=== PATIENT | female | born 1950 | race Caucasian/White ===

== ENCOUNTER 2016-05-17 15:35 | Emergency (ER) | payer OTHER ==
[~2016-05-17] VITALS: Ht 157.5 cm; Wt 77.1 kg
--- NOTE | ~2016-05-17 | EKG ---
[place] [address] [facility] [place] [address] ELECTROCARDIOGRAM REPORT Name: CARYN WADSWORTH [id number] Admission: 05/17/16 Attend Phys: Discharge: 05/17/16 Date of : 54 Report #: [id number] THIS REPORT FOR: //name// [facility] ED Test Date: 2016-05-17 Test Time: 15:40:17 Pat Name: CARYN WADSWORTH Department: Room: Gender: F Safety Fire Boss: georgina khoury : 1950 Requested By: Tacos Messina Order Number: [id number] MD: Deon Kendrick Measurements Intervals [place] Rate: 68 P: 52 CA: 170 QRS: 18 QRSD: 109 T: 59 QT: 453 QTc: 482 Interpretive Statements Sinus rhythm Probable left ventricular hypertrophy Poor R wave progression No previous ECG available for comparison Electronically Signed On 05-18-2016 13:34:13 [employer] by Deon Kendrick [email or web address] <ELECTRONICALLY SIGNED> By: Deon Kendrick MD, [facility] 05/18/16 1334 1540 1540 Deon Kendrick MD, FACC /EPI
[~2016-05-17 15:35] MED LIST: ABILIFY10 MG; ACETAMINOPHEN-1 EAC1 PO; BUSPAR 5 MG TABL5 M1 PO; BUSPIRONE; BUSPIRONE HCL10 MG PO; CLONAZEPAM; CLONAZEPAM 1 MG1 M1 PO; COMBIVENT INH; FLEXERIL PO; FLOMAX0.4 MG PO; HCTZ; HYDROCHLOROTH12.5 MG PO; IBUPROFEN 200200 M1 PO; INDOMETHACIN 2525 MG PO; K-DUR 20 MEQ T20 MEQ PO; LEVAQUIN 500 M500 MG PO; LEXAPRO 10 MG T10 MG PO; LOMOTIL TABLET1 EACH PO; LOPRESSOR; LOPRESSOR 50 MG50 M1 PO; LOSARTAN POTAS100 MG PO; MAALOX MAXIMUM355 ML PO; METOPROLOL 50 M50 M1 PO; NASAL MOISTURIZ30 ML NS; NASAL SPRAY30 ML NS; NITROFURANTOIN100 MG PO; NORCO 5-325 TA1 EACH PO; NORFLEX100 MG PO; OPANA ER5 M1 PO; OXECTA5 MG PO; PERCOCET; PERCOCET 5-3251 EACH PO; PROZAC40 MG PO; PYRIDIUM100 MG PO; ROXICODONE15 M1 PO; SIMVASTATIN40 MG PO; TOPROL XL50 MG; TRAMADOL 50 MG50 MG PO; TRIAMTERENE-HC1 EAC2 PO; TUMS PO; ULTRAM 50MG TAB50 MG; ULTRAM 50MG TAB50 MG PO; VALIUM5 MG PO; VICODIN 5-5001 EACH PO; VICODIN HP 10-1 EAC1 PO; XANAX 0.5 MG0.5 M1 PO; ZOCOR; ZOFRAN4 MG PO; ZOLOFT; ZOLOFT 50 MG TA50 M1 PO
[2016-05-17] MEDS ORDERED: BUSPIRONE HCL10 MG PO (15:53)
[2016-05-17 16:16] LABS: ABSOLUTE NEUTROPHILS 5.5 thou/uL (1.4-8.2); BASOPHILS 1.7 % (0.0-2.0); EOSINOPHILS 0.1 % (0.0-3.0); HEMATOCRIT 39.2 % (37.0-47.0); HEMOGLOBIN 13.3 gm/dL (12.0-15.0); LYMPHOCYTES 32.5 % (24.0-44.0); MCH 28.1 pg (26.0-34.0); MCHC 33.9 % (28.0-37.0); MCV 82.8 fL (80.0-100.0); MONOCYTES 5.4 % (1.0-8.0); PLATELET COUNT 382 thou/uL (150-400); POLYS 60.3 % (36.0-66.0); RBC 4.73 mil/uL (4.20-5.00); RDW 13.9 % (10.5-14.5); WBC 9.1 thou/uL (4.0-11.0)
[2016-05-17 16:19] LABS: ANION GAP 15 mmol/L (7-16); BUN 14 mg/dL (7-18); CALCIUM 8.9 mg/dL (8.5-10.1); CHLORIDE 105 mmol/L (98-107); CO2 25 mmol/L (21-32); GLUCOSE 126 mg/dL (70-99); MANUAL DIFF NO; SODIUM 145 mmol/L (136-145)
[2016-05-17 16:26] LABS: POTASSIUM 2.8 mmol/L (3.5-5.1)
[2016-05-17 16:28] LABS: ALBUMIN 3.6 g/dL (3.4-5.0); ALKALINE PHOSPHATASE 72 U/L (46-116); MAGNESIUM 1.7 mg/dL (1.8-2.4); SGOT 18 U/L (15-37); SGPT 18 U/L (30-65); TOTAL BILIRUBIN 0.2 mg/dL (<0.1-1.0); TOTAL PROTEIN 7.4 g/dL (6.4-8.2)
[2016-05-17 17:07] LABS: TROPONIN-I < 0.04 ng/mL (<0.04-0.07)
[2016-05-17] MEDS ORDERED: TRAMADOL 50 MG50 MG PO (17:16)
[2016-05-17] MEDS ORDERED: TESSALON PERLE100 MG PO (17:16)
[2016-05-17] MEDS ORDERED: VENTOLIN HFA 1818 GM INH (17:16)
[2016-06-25] MEDS ORDERED: LOPERAMIDE 2 MG2 M1 PO (11:23)
[2016-06-25] MEDS ORDERED: ZOFRAN ODT4 MG PO (11:23)
[2016-06-25] MEDS ORDERED: PHENERGAN 25 MG25 M1 PO (11:23)
[2016-06-25] MEDS ORDERED: BENTYL 20 MG TA20 M1 PO (11:23)
[2016-06-25] MEDS ORDERED: TRAMADOL 50 MG50 MG PO (11:51)
== END 2016-05-17 17:35 | disposition home or self-care (01) ==
LOC: ER 15:35
PROVIDERS: Emergency Medicine
DX: J20.8 Acute bronchitis due to other specified organisms (principal); I10 Essential (primary) hypertension; F32.9 Major depressive disorder, single episode, unspecified; F41.9 Anxiety disorder, unspecified; K21.9 Gastro-esophageal reflux disease without esophagitis; M54.30 Sciatica, unspecified side; Z88.6 Allergy status to analgesic agent; Z88.3 Allergy status to other anti-infective agents; F17.210 Nicotine dependence, cigarettes, uncomplicated; F10.99 Alcohol use, unspecified with unspecified alcohol-induced disorder

== ENCOUNTER 2016-10-30 15:16 | Emergency (ER) | payer OTHER ==
[~2016-10-30] VITALS: Ht 157.5 cm; Wt 77.1 kg
[~2016-10-30 15:16] MED LIST changes: +BENTYL 20 MG TA20 M1 PO; +LOPERAMIDE 2 MG2 M1 PO; +PHENERGAN 25 MG25 M1 PO; +TESSALON PERLE100 MG PO; +VENTOLIN HFA 1818 GM INH; +ZOFRAN ODT4 MG PO
[2016-10-30] MEDS ORDERED: VENTOLIN HFA 1818 GM INH (15:32)
[2016-10-30] MEDS ORDERED: NORCO 5-325 TA1 EACH PO (16:12)
== END 2016-10-30 16:32 | disposition home or self-care (01) ==
LOC: ER 15:16
DX: S90.31XA Contusion of right foot, initial encounter (principal); I10 Essential (primary) hypertension; G43.909 Migraine, unspecified, not intractable, without status migrainosus; F32.9 Major depressive disorder, single episode, unspecified; F41.9 Anxiety disorder, unspecified; K21.9 Gastro-esophageal reflux disease without esophagitis; F17.210 Nicotine dependence, cigarettes, uncomplicated; F10.99 Alcohol use, unspecified with unspecified alcohol-induced disorder; Z87.442 Personal history of urinary calculi; Z88.6 Allergy status to analgesic agent; Z88.8 Allergy status to other drugs, medicaments and biological substances; W20.8XXA Other cause of strike by thrown, projected or falling object, initial encounter; Y93.89 Activity, other specified; Y92.89 Other specified places as the place of occurrence of the external cause; Y99.8 Other external cause status

== ENCOUNTER 2016-11-11 20:45 | Emergency (ER) | payer OTHER ==
[~2016-11-11] VITALS: Ht 154.9 cm; Wt 77.1 kg
[2016-11-11 21:55] LABS: ABSOLUTE NEUTROPHILS 3.7 thou/uL (1.4-8.2); BASOPHILS 0.8 % (0.0-2.0); EOSINOPHILS 2.5 % (0.0-3.0); HEMOGLOBIN 12.9 gm/dL (12.0-15.0); MCH 29.3 pg (26.0-34.0); MCHC 33.9 g/dL (28.0-37.0); MCV 86.5 fL (80.0-100.0); MONOCYTES 7.1 % (1.0-8.0); PLATELET COUNT 302 thou/uL (150-400); POLYS 48.6 % (36.0-66.0); RBC 4.39 mil/uL (4.20-5.00); RDW 13.6 % (10.5-14.5); WBC 7.6 thou/uL (4.0-11.0)
[2016-11-11 22:04] LABS: ALBUMIN 3.8 g/dL (3.4-5.0); ALKALINE PHOSPHATASE 71 U/L (46-116); ANION GAP 8 mmol/L (7-16); BUN 17 mg/dL (7-18); CALCIUM 9.2 mg/dL (8.5-10.1); CHLORIDE 105 mmol/L (98-107); CO2 28 mmol/L (21-32); CREATININE 1.3 mg/dL (0.6-1.0); GLUCOSE 133 mg/dL (74-106); POTASSIUM 3.7 mmol/L (3.5-5.1); SGOT 43 U/L (15-37); SGPT 64 U/L (30-65); SODIUM 141 mmol/L (136-145); TOTAL BILIRUBIN 0.3 mg/dL (<0.1-1.0); TOTAL PROTEIN 7.7 g/dL (6.4-8.2)
[2016-11-11 22:06] LABS: MANUAL DIFF NO
[2016-11-11] MEDS ORDERED: CLEOCIN HCL300 MG PO (22:27)
[2016-11-11] MEDS ORDERED: NORCO 5-325 TA1 EACH PO (22:27)
== END 2016-11-11 22:52 | disposition home or self-care (01) ==
LOC: ER 20:45
PROVIDERS: Emergency Medicine
DX: L03.115 Cellulitis of right lower limb (principal); G43.909 Migraine, unspecified, not intractable, without status migrainosus; I10 Essential (primary) hypertension; F32.9 Major depressive disorder, single episode, unspecified; F41.9 Anxiety disorder, unspecified; K21.9 Gastro-esophageal reflux disease without esophagitis; F17.210 Nicotine dependence, cigarettes, uncomplicated; F10.99 Alcohol use, unspecified with unspecified alcohol-induced disorder; Z87.442 Personal history of urinary calculi; Z88.6 Allergy status to analgesic agent; Z88.8 Allergy status to other drugs, medicaments and biological substances

== ENCOUNTER 2016-12-15 14:58 | Emergency (ER) | payer OTHER ==
[~2016-12-15] VITALS: Ht 162.6 cm; Wt 81.7 kg
[~2016-12-15 14:58] MED LIST changes: +CLEOCIN HCL300 MG PO
[2016-12-15 16:33] LABS: URINE BILIRUBIN NEGATIVE (Negative); URINE BLOOD TRACE (Negative); URINE COLOR YELLOW; URINE GLUCOSE-RANDOM* NEGATIVE (Negative); URINE KETONES NEGATIVE (Negative); URINE LEUKOCYTES-REFLEX TRACE (Negative); URINE PROTEIN (DIPSTICK) 1+ (Negative); URINE SPECIFIC GRAVITY >= 1.030 (1.003-1.035); URINE UROBILINOGEN 0.2 E.U./dl (0.2-1.0)
[2016-12-15 16:38] LABS: SQUAMOUS >10 Many /LPF (0-3)
[2016-12-15 16:39] LABS: ABSOLUTE NEUTROPHILS 3.5 thou/uL (1.4-8.2); BASOPHILS 1.5 % (0.0-2.0); EOSINOPHILS 1.8 % (0.0-3.0); HEMATOCRIT 38.6 % (37.0-47.0); HEMOGLOBIN 13.4 gm/dL (12.0-15.0); LYMPHOCYTES 40.6 % (24.0-44.0); MCH 29.3 pg (26.0-34.0); MCHC 34.7 g/dL (28.0-37.0); MCV 84.6 fL (80.0-100.0); MONOCYTES 7.1 % (1.0-8.0); PLATELET COUNT 305 thou/uL (150-400); RBC 4.56 mil/uL (4.20-5.00); RDW 13.6 % (10.5-14.5); WBC 7.1 thou/uL (4.0-11.0)
[2016-12-15 16:39] LABS: CASTS None Seen /LPF (None Seen); CRYSTALS None Seen /LPF (None Seen); URINE RBC 0-2 Rare /HPF (0-2); URINE WBC-REFLEX 0-5 Rare /HPF (0-5)
[2016-12-15 16:42] LABS: MANUAL DIFF NO
[2016-12-15 16:46] LABS: CALCIUM 9.7 mg/dL (8.5-10.1); POTASSIUM 3.8 mmol/L (3.5-5.1)
== END 2016-12-15 17:29 | disposition home or self-care (01) ==
LOC: ER 14:58
PROVIDERS: Physician Assistant
DX: M79.673 Pain in unspecified foot (principal); R21 Rash and other nonspecific skin eruption; G43.909 Migraine, unspecified, not intractable, without status migrainosus; I10 Essential (primary) hypertension; F32.9 Major depressive disorder, single episode, unspecified; F41.9 Anxiety disorder, unspecified; K21.9 Gastro-esophageal reflux disease without esophagitis; F17.210 Nicotine dependence, cigarettes, uncomplicated; F10.99 Alcohol use, unspecified with unspecified alcohol-induced disorder; Z87.442 Personal history of urinary calculi; Z88.8 Allergy status to other drugs, medicaments and biological substances; Z88.6 Allergy status to analgesic agent

== ENCOUNTER 2018-06-21 16:47 | Emergency (ER) | payer OTHER ==
[~2018-06-21] VITALS: Ht 154.9 cm; Wt 81.7 kg
[2018-06-21 18:01] LABS: EOSINOPHILS 0.9 % (0.0-3.0); HEMATOCRIT 41.9 % (37.0-47.0); HEMOGLOBIN 14.5 gm/dL (12.0-15.0); LYMPHOCYTES 31.2 % (24.0-44.0); MCH 30.2 pg (26.0-34.0); MCHC 34.5 g/dL (28.0-37.0); MCV 87.4 fL (80.0-100.0); MONOCYTES 6.6 % (1.0-8.0); PLATELET COUNT 266 thou/uL (150-400); POLYS 60.3 % (36.0-66.0); RBC 4.79 mil/uL (4.20-5.00); RDW 13.7 % (10.5-14.5); WBC 6.6 thou/uL (4.0-11.0)
[2018-06-21 18:07] LABS: ANION GAP 14 mmol/L (7-16); BUN 17 mg/dL (7-18); CALCIUM 9.6 mg/dL (8.5-10.1); CHLORIDE 97 mmol/L (98-107); CO2 26 mmol/L (21-32); GLUCOSE 184 mg/dL (74-106); SODIUM 137 mmol/L (136-145)
[2018-06-21 18:15] LABS: ALBUMIN 3.9 g/dL (3.4-5.0); DIRECT BILIRUBIN < 0.1 mg/dL (<0.1-0.3); SGOT 225 U/L (15-37); SGPT 184 U/L (30-65); TOTAL BILIRUBIN 0.3 mg/dL (<0.1-1.0); TOTAL PROTEIN 8.4 g/dL (6.4-8.2)
[2018-06-21 18:16] LABS: URINE BLOOD 2+ (Negative); URINE CLARITY CLEAR; URINE COLOR YELLOW; URINE GLUCOSE-RANDOM* NEGATIVE (Negative); URINE KETONES TRACE (Negative); URINE LEUKOCYTES-REFLEX NEGATIVE (Negative); URINE NITRITE-REFLEX NEGATIVE (Negative); URINE PROTEIN (DIPSTICK) 2+ (Negative); URINE SPECIFIC GRAVITY >= 1.030 (1.005-1.035)
[2018-06-21 18:21] LABS: ICTOTEST (BILI CONFIRMATORY) Negative (Negative); URINE BILIRUBIN NEGATIVE (Negative)
[2018-06-21 18:29] LABS: CASTS None Seen /LPF (None Seen); CRYSTALS None Seen /LPF (None Seen); SQUAMOUS >10 Many /LPF (0-3); URINE RBC >20 Many /HPF (0-2); URINE WBC-REFLEX 0-5 Rare /HPF (0-5)
[2018-06-21 18:30] LABS: BACTERIA-REFLEX None Seen /HPF (None Seen)
[2018-06-21] MEDS ORDERED: TOPROL XL50 MG PO (20:29)
[2018-06-21] MEDS ORDERED: AMOXICILLIN500 M1 PO (20:30)
[2018-06-21 21:24] VITALS: BP 124/86
== END 2018-06-21 21:25 | disposition home or self-care (01) ==
LOC: ER 16:47
PROVIDERS: Emergency Medicine
DX: N20.0 Calculus of kidney (principal); S39.012A Strain of muscle, fascia and tendon of lower back, initial encounter; I10 Essential (primary) hypertension; G43.909 Migraine, unspecified, not intractable, without status migrainosus; M54.30 Sciatica, unspecified side; F32.9 Major depressive disorder, single episode, unspecified; F41.9 Anxiety disorder, unspecified; K21.9 Gastro-esophageal reflux disease without esophagitis; F17.210 Nicotine dependence, cigarettes, uncomplicated; Z88.8 Allergy status to other drugs, medicaments and biological substances; X58.XXXA Exposure to other specified factors, initial encounter; Y93.89 Activity, other specified; Y92.89 Other specified places as the place of occurrence of the external cause; Y99.8 Other external cause status

== ENCOUNTER 2018-11-19 14:28 | Emergency (ER) | payer OTHER ==
[~2018-11-19] VITALS: Ht 154.9 cm; Wt 83.9 kg
[~2018-11-19 14:28] MED LIST changes: +AMOXICILLIN500 M1 PO; +TOPROL XL50 MG PO
[2018-11-19 17:12] LABS: URINE BILIRUBIN NEGATIVE (Negative); URINE BLOOD NEGATIVE (Negative); URINE CLARITY CLEAR; URINE COLOR YELLOW; URINE GLUCOSE-RANDOM* NEGATIVE (Negative); URINE KETONES NEGATIVE (Negative); URINE LEUKOCYTES-REFLEX NEGATIVE (Negative); URINE NITRITE-REFLEX NEGATIVE (Negative); URINE PROTEIN (DIPSTICK) TRACE (Negative); URINE SPECIFIC GRAVITY 1.015 (1.005-1.035); URINE UROBILINOGEN 0.2 E.U./dl (0.2-1.0)
[2018-11-19] MEDS ORDERED: CAPSAICIN HOT1 EACH TOP (21:26)
[2018-11-19] MEDS ORDERED: ROBAXIN500 MG PO (21:26)
[2018-11-19 21:48] VITALS: BP 190/159
== END 2018-11-19 22:09 | disposition home or self-care (01) ==
LOC: ER 14:28
PROVIDERS: Emergency Medicine
DX: M51.06 Intervertebral disc disorders with myelopathy, lumbar region (principal); K59.00 Constipation, unspecified; I10 Essential (primary) hypertension; G43.909 Migraine, unspecified, not intractable, without status migrainosus; F32.9 Major depressive disorder, single episode, unspecified; F41.9 Anxiety disorder, unspecified; K21.9 Gastro-esophageal reflux disease without esophagitis; M48.061 Spinal stenosis, lumbar region without neurogenic claudication; M19.90 Unspecified osteoarthritis, unspecified site; F17.210 Nicotine dependence, cigarettes, uncomplicated; Z87.442 Personal history of urinary calculi; Z88.6 Allergy status to analgesic agent

== ENCOUNTER 2019-03-29 17:03 | Inpatient (IN) | payer OTHER ==
[~2019-03-29] VITALS: Ht 154.9 cm; Wt 78.5 kg
[2019-03-29 17:03] VITALS: BP 179/123
[~2019-03-29 17:03] MED LIST changes: +CAPSAICIN HOT1 EACH TOP; +ROBAXIN500 MG PO
[2019-03-29 17:32] LABS: URINE BILIRUBIN NEGATIVE (Negative); URINE BLOOD NEGATIVE (Negative); URINE CLARITY CLEAR; URINE COLOR YELLOW; URINE GLUCOSE-RANDOM* NEGATIVE (Negative); URINE KETONES NEGATIVE (Negative); URINE NITRITE-REFLEX NEGATIVE (Negative); URINE PROTEIN (DIPSTICK) 1+ (Negative); URINE SPECIFIC GRAVITY 1.025 (1.005-1.035); URINE UROBILINOGEN 0.2 E.U./dl (0.2-1.0)
[2019-03-29 17:33] LABS: URINE LEUKOCYTES-REFLEX 1+ (Negative)
[2019-03-29 17:38] LABS: BACTERIA-REFLEX None Seen /HPF (None Seen); CRYSTALS None Seen /LPF (None Seen); SQUAMOUS 4-10 Moderate /LPF (0-3); URINE RBC None Seen /HPF (0-2); URINE WBC-REFLEX 6-15 Few /HPF (0-5)
[2019-03-29 18:25] LABS: ABSOLUTE NEUTROPHILS 9.7 thou/uL (1.4-8.2); BASOPHILS 0.3 % (0.0-2.0); EOSINOPHILS 0.1 % (0.0-3.0); HEMATOCRIT 41.8 % (37.0-47.0); HEMOGLOBIN 13.5 gm/dL (12.0-15.0); LYMPHOCYTES 29.1 % (24.0-44.0); MCH 27.1 pg (26.0-34.0); MCHC 32.3 g/dL (28.0-37.0); MCV 83.8 fL (80.0-100.0); PLATELET COUNT 399 thou/uL (150-400); POLYS 65.5 % (36.0-66.0); RBC 4.99 mil/uL (4.20-5.00); RDW 15.2 % (10.5-14.5); WBC 14.9 thou/uL (4.0-11.0)
[2019-03-29 18:32] LABS: CALCIUM 9.4 mg/dL (8.5-10.1); POTASSIUM 3.7 mmol/L (3.5-5.1)
[2019-03-29 18:37] LABS: TOTAL BILIRUBIN 0.3 mg/dL (<0.1-1.0); TOTAL PROTEIN 7.8 g/dL (6.4-8.2)
[2019-03-29 20:02] VITALS: BP 144/95
[2019-03-29] MEDS ORDERED: TOPROL XL50 MG (20:03)
--- NOTE | 2019-03-29 20:30 | NUR ---
Pt. arrived to the unit from the emergency room accompanied by staff. She is alert and oriented, but forgetful. Pt. is also a poor historian. She is up ad chance and is anxious for a shower and something to eat. Grinding Operator is going to give pt. a bath later this pm.
[2019-03-29 20:33] VITALS: BP 160/107
[2019-03-29] MEDS ORDERED: IBUPROFEN IB200 MG PO (20:49)
[2019-03-29] MEDS ORDERED: TRAMADOL 50 MG50 MG PO (20:50)
--- NOTE | 2019-03-30 01:00 | NUR ---
Pt. resting soundly and was awaken by Sharmin LAIRD. Pt. lethargic and Sharmin LAIRD ordered ABG's. Pt. did start to arouse more and was answering my questions appropriately. Bp elevated and po bp medication given. Bed alarm in place for safety.
[2019-03-30 01:55] LABS: BE(vivo) 1.8 mmol/L (-2 to +3); HCO3 26.9 mmol/L (22.0-26.0); PCO2 44.1 mmHg (35.0-45.0); PO2 76.6 mmHg (80.0-100.0); pH 7.403 (7.360-7.450); sO2 95.3 % (92.0-98.0)
[2019-03-30 03:49] VITALS: BP 180/111
--- NOTE | 2019-03-30 03:50 | NUR ---
Pt. crying out in pain and is very anxious. At this time bp was taken and it was elevated. Pain medication given (see emar) for c/o pain to her left hip. Pt. was also toileted.
[2019-03-30] MEDS ORDERED: LOSARTAN POTAS100 MG PO (04:31)
[2019-03-30] MEDS ORDERED: LIPITOR80 MG PO (04:32)
[2019-03-30] MEDS ORDERED: NORVASC 2.5 MG2.5 M1 PO (04:32)
[2019-03-30 05:15] VITALS: BP 163/73
--- NOTE | 2019-03-30 05:21 | NUR ---
Pt. resting quietly with no c/o pain. Bp rechecked and it had come down (see vs).
[2019-03-30 08:00] VITALS: BP 187/108
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
--- NOTE | 2019-03-30 17:51 | NUR ---
RESUMED CARE AT 1745. PT TRANSFERRED FROM 4W TO SENIOR SUITES ROOM 411. PT IS NOTED TO BE HYPERTENSIVE UPON ARRIVAL AND REQUESTING TO GO OUT AND SMOKE. PT STATES, "MY BLOOD PRESSURE IS HIGH BECAUSE YA'LL WON'T LET ME HAVE A CIGARETTE." NURSE EDUACATED PT ON SMOKING POLICY AND THAT [facility] IS A TOBACCO FREE BRANDON. PT REQUESTS TO GO OUT AND SMOKE STILL. PT IS CURRENTLY SITTING UP IN BED. CALL LIGHT IS WITHIN REACH. NURSE WILL CONTINUE TO MONITOR.
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
[2019-03-30 18:43] VITALS: BP 175/89
[2019-03-30 20:40] VITALS: BP 183/95
[2019-03-31 06:08] VITALS: BP 161/101
--- NOTE | 2019-03-31 06:10 | NUR ---
PATIENT ALERT AND ORIENTED X4, CONFUSED AND FORGETFUL. UP TO BATHROOM BY SELF, NOT A FALL RISK. C/O PAIN, IV MED GIVEN WHICH GIVES HER A HEADACHE, PO MED GIVEN FOR THAT. IV IN RAC PATENT. BP UP LAST NIGHT, SCHEDULLED MED GIVEN. BP TAKEN THIS AM AND WAS 191/101. THIS SEEMS TO BE HER NORM.SLEPT OFF AND ON DURING NIGHT.
[2019-03-31 08:05] VITALS: BP 169/89
--- NOTE | 2019-03-31 12:56 | NUR ---
SW reviewed chart and spoke with nursing and attending physician. Pt was transferred to [facility] from 4 and may be ready for discharge later today. Awaiting consult by neurosurgery. Psych consulted completed yesterday due to pt's anxiety/depression. SONG met with pt at bedside. Introduced role of SW. Pt is alert/orientated x 4. Pt reports she lives at home with her spouse. They are guardians for their two grand children ages 6 and 12. Pt states that the children have Medicaid and they are being taken care of. Pt states she did have [place]icaid at one time, but it has lapsed. Pt did have food stamps at one time. SW [facility] to determine if Medicaid can get reinstated. Pt is agreeable. Pt will need transportation home via cab: [address] [id number]. Meds will need to be vouched for in [facility]. Pt states they do not have a car and they do not always have reliable transportation. Pt has a STUDENT LIFE DEAN that she sees regularly. [facility] to follow up with pt regarding Medicaid application. Awaiting final discharge orders. SONG is following to assist as needed with discharge planning.
[2019-03-31] MEDS ORDERED: NORCO 5-325 TA1 EAC1 PO (13:29)
[2019-03-31] MEDS ORDERED: LOSARTAN POTAS100 MG PO (15:15)
[2019-03-31] MEDS ORDERED: LIPITOR80 MG PO (15:15)
[2019-03-31] MEDS ORDERED: NORVASC 2.5 MG2.5 M1 PO (15:15)
[2019-03-31] MEDS ORDERED: TOPROL XL50 MG PO (15:15)
[2019-03-31 15:27] VITALS: BP 169/89
--- NOTE | 2019-03-31 17:04 | NUR ---
ASSUMED CARE OF PATIENT AT 0715, PATIENT ALERT AND ORIENTED X 4. PATIENT UP AD ALBER IN HER ROOM. PATIENT C/O PAIN WITH LEFT UPPER BACK. PATIENT RECEIVED FENTANYL 50 MCG IV X 1, WITH PARTIAL RELIEF. DR CHAHAL HERE TO SEE THE PATIENT, POSSIBLE DISCHARGE TO HOME AFTER DR LORD SEES THE PATIENT IN REGARD TO COMPRESSION FX IN BACK, NAILHEAD SETTER SAW THE PATIENT AND NO SURGERY TO BE DONE, MRI SHOWED OLD COMPRESSION FRACTURE. DR CHAHAL PUT DISCHARGE ORDERS IN, PATIENT NEEDS CAB VOUCHER AND NEEDS HELP OBTAIN PAIN MEDS, SCRIPT FOR NORCO WENT TO THE PATIENT'S PHARMACY, BUT PTIENT C/O NOT BEING ABLE TO GET SCRIPT FROM THE PHARMACY. YURI/KENISHA WILL GET SCRIPT TO SEND TO OUTPATIENT PHARMACY. REPORT GIVEN TO LUANA/RN TO TAKE OVER CARE AT 1300.
--- NOTE | 2019-03-31 18:09 | NUR ---
PT RECEIVED DISCHARGE INSTRUCTIONS, VERBALIZED UNDERSTANDING OF HER MEDICATION. PT WAS TRANSPORTED BY WHEELCHAIR TO OUTPATIENT PHARMACY AND THEN TO [facility] FOR A TAXI HOME. PT VSS, PAIN CONTROLLED WITH IV ANALGESIC. BELONGINGS PACKED AND SENT HOME WITH PT.
== END 2019-03-31 19:30 | disposition home or self-care (01) | DRG 871 ==
LOC: ER 17:03 → EROBS 19:49 → 4W 19:49 → 4N 03-30 08:00 → 4W 03-30 08:00 → 4N 03-30 17:47 → ENTRNSPT 03-31 17:38 → 4N 03-31 19:30
PROVIDERS: Emergency Medicine Emergency Medical Services; Nurse Practitioner Acute Care; ADMIT Hospitalist
DX: A41.9 Sepsis, unspecified organism (principal); G93.41 Metabolic encephalopathy; S22.089A Unspecified fracture of T11-T12 vertebra, initial encounter for closed fracture; N39.0 Urinary tract infection, site not specified; G43.909 Migraine, unspecified, not intractable, without status migrainosus; M54.5 Low back pain; I10 Essential (primary) hypertension; F32.9 Major depressive disorder, single episode, unspecified; F41.9 Anxiety disorder, unspecified; K21.9 Gastro-esophageal reflux disease without esophagitis; F17.210 Nicotine dependence, cigarettes, uncomplicated; M54.9 Dorsalgia, unspecified; Z71.6 Tobacco abuse counseling; M54.32 Sciatica, left side; X58.XXXA Exposure to other specified factors, initial encounter; Y93.89 Activity, other specified; Y92.89 Other specified places as the place of occurrence of the external cause; Z87.442 Personal history of urinary calculi; Z88.8 Allergy status to other drugs, medicaments and biological substances; Y99.8 Other external cause status
CPT/HCPCS: 10045; 10790

== ENCOUNTER 2019-04-27 14:55 | Emergency (ER) | payer OTHER ==
[~2019-04-27] VITALS: Ht 154.9 cm; Wt 78.5 kg
[~2019-04-27 14:55] MED LIST changes: +IBUPROFEN IB200 MG PO; +LIPITOR80 MG PO; +NORCO 5-325 TA1 EAC1 PO; +NORVASC 2.5 MG2.5 M1 PO
[2019-04-27] MEDS ORDERED: EXCEDRIN CAPLE1 EACH PO (14:59)
[2019-04-27] MEDS ORDERED: EXCEDRIN MIGRA1 EAC1 PO (14:59)
[2019-04-27] MEDS ORDERED: IBUPROFEN 200200 M1 PO (14:59)
[2019-04-27] MEDS ORDERED: TOPROL XL50 MG (15:00)
[2019-04-27] MEDS ORDERED: NORCO 5-325 TA1 EAC1 PO (16:16)
[2019-04-27] MEDS ORDERED: IBUPROFEN 600600 M1 PO (16:16)
[2019-04-27 17:04] VITALS: BP 156/92
== END 2019-04-27 17:06 | disposition home or self-care (01) ==
LOC: ER 14:55
DX: S46.012A Strain of muscle(s) and tendon(s) of the rotator cuff of left shoulder, initial encounter (principal); G43.909 Migraine, unspecified, not intractable, without status migrainosus; K21.9 Gastro-esophageal reflux disease without esophagitis; I10 Essential (primary) hypertension; F32.9 Major depressive disorder, single episode, unspecified; F17.210 Nicotine dependence, cigarettes, uncomplicated; Z87.442 Personal history of urinary calculi; Z88.6 Allergy status to analgesic agent; W18.39XA Other fall on same level, initial encounter; Y92.89 Other specified places as the place of occurrence of the external cause; Y93.89 Activity, other specified; Y99.8 Other external cause status

== ENCOUNTER 2019-06-01 19:23 | Emergency (ER) | payer OTHER ==
[~2019-06-01] VITALS: Ht 154.9 cm; Wt 79.4 kg
[~2019-06-01 19:23] MED LIST changes: +EXCEDRIN CAPLE1 EACH PO; +EXCEDRIN MIGRA1 EAC1 PO; +IBUPROFEN 600600 M1 PO
[2019-06-01] MEDS ORDERED: FUROSEMIDE 20 M20 MG PO (19:47)
[2019-06-01] MEDS ORDERED: GABAPENTIN 100100 MG PO (19:48)
[2019-06-01] MEDS ORDERED: TRAMADOL 50 MG50 MG PO (19:48)
[2019-06-01 20:00] LABS: ABSOLUTE NEUTROPHILS 3.8 thou/uL (1.4-8.2); BASOPHILS 1.5 % (0.0-2.0); EOSINOPHILS 1.9 % (0.0-3.0); HEMATOCRIT 36.6 % (37.0-47.0); HEMOGLOBIN 12.1 gm/dL (12.0-15.0); LYMPHOCYTES 42.5 % (24.0-44.0); MCH 27.7 pg (26.0-34.0); MONOCYTES 5.3 % (1.0-8.0); PLATELET COUNT 334 thou/uL (150-400); POLYS 48.8 % (36.0-66.0); RBC 4.36 mil/uL (4.20-5.00); RDW 15.4 % (10.5-14.5); WBC 7.9 thou/uL (4.0-11.0)
[2019-06-01 20:09] LABS: CALCIUM 9.4 mg/dL (8.5-10.1); CREATININE 0.8 mg/dL (0.6-1.0); POTASSIUM 3.3 mmol/L (3.5-5.1)
[2019-06-01 20:14] LABS: INR 1.1; PROTIME 11.1 Seconds (9.3-11.4)
[2019-06-01 20:15] LABS: TOTAL BILIRUBIN 0.3 mg/dL (<0.1-1.0); TOTAL PROTEIN 7.7 g/dL (6.4-8.2)
[2019-06-01] MEDS ORDERED: NORCO 10-325 T1 EACH PO (22:02)
[2019-06-01 22:20] VITALS: BP 163/123
== END 2019-06-01 22:20 | disposition home or self-care (01) ==
LOC: ER 19:23
PROVIDERS: Physician Assistant
DX: I87.2 Venous insufficiency (chronic) (peripheral) (principal); M79.89 Other specified soft tissue disorders; K21.9 Gastro-esophageal reflux disease without esophagitis; G43.909 Migraine, unspecified, not intractable, without status migrainosus; F32.9 Major depressive disorder, single episode, unspecified; F17.210 Nicotine dependence, cigarettes, uncomplicated; F41.9 Anxiety disorder, unspecified; Z88.8 Allergy status to other drugs, medicaments and biological substances; T50.991A Poisoning by other drugs, medicaments and biological substances, accidental (unintentional), initial encounter; Y92.89 Other specified places as the place of occurrence of the external cause

== ENCOUNTER 2019-10-03 15:34 | Emergency (ER) | payer OTHER ==
[~2019-10-03] VITALS: Ht 154.9 cm; Wt 77.1 kg
--- NOTE | ~2019-10-03 | EMS ---
[address] [address] EMS Patient Care Report Name: CARYN WADSWORTH Room #: [facility] M.R.#: [id number] Admission: Attend Phys: Discharge: Date of : 54 Report #: [id number] THIS REPORT FOR: //name// Report Transmitted: 10/03/2019 14:54 EMS Care Summary [place], [place]/[facility] Incident [id number] @ 10/03/2019 14:54 Incident Location [address] [place] [address] Patient CARYN WADSWORTH Female, 68 Years 1950 Patient Address [address] [place] [id number] Patient History Hypertension (HTN),Depression,Anxiety, Patient Allergies Ibuprofen, Chief Complaint CHEST PAIN Disposition Transported No Lights/[place] Dispatch Reason Chest Pain (Non-Traumatic) Transported To [facility] Narrative UPON ARRIVAL PT SITTING UPRIGHT IN CHAIR IN FRONT YARD CONSCIOUS AND ALERT. PT C/O L SIDED CHEST PAIN THAT STARTED EARLY IN THE MORNING, ALSO ABD PAIN WHICH PT HAS NORMALLY. PT ALSO C/O SOB WHICH SHE ALSO HAS NORMALLY. PAIN WORSE WITH ACTIVITY. PT STATES SHE'S ALSO BEEN VERY STRESSED TODAY WHICH MAY BE PART OF THE PROBLEM. PT TRANSPORTED TO [facility]. [address] [address] EMS Patient Care Report Name: CARYN WADSWORTH Room #: PRE Guilherme#: [id number] Admission: Attend Phys: Discharge: Date of : 54 Report #: [id number] Initial Vitals @15:25P: 87,BP: 167/95,SpO2: 94, @15:09P: 89,Pain: 6/10,SpO2: 96,MO Suspected: false @15:08P: 100,R: 20,BP: 178/103,Pain: 6/10,GCS: 15,Glucose: 145,CO: 1,SpO2: 95,Revised Trauma: 12, @15:20P: 89,CO: 0,SpO2: 96, Assessments @15:02MENTAL:Person Oriented,Time Oriented,Event Oriented,Place Oriented,SKIN:Diaphoresis,HEENT:Head/Face: No Abnormalities,LUNG SOUNDS:General: No Abnormalities,ABDOMEN:General: No Abnormalities,PELVIS//GI:EXTREMITIES:Left Arm: No Abnormalities,Right Arm: No Abnormalities,Left Leg: No Abnormalities,Right Leg: No Abnormalities,PULSE:Radial: 2+ Normal,NEURO:No Abnormalities, Impression Chest Pain / Discomfort Procedures @15:0912-Lead ECGResponse: UnchangedSucceeded@15:09Saline Lock 0cc (20 ga) Site: Hand-LeftResponse: UnchangedFailed@15:10Saline Lock 10cc (20 ga) Site: Hand-RightResponse: UnchangedSucceeded@15:08Aspirin - 324 Milligrams (mg) - OralResponse: Unchanged@15:02ALS AssessmentResponse: UnchangedSucceeded Timeline 14:53,Call Received 14:53,Dispatch Notified 14:54,Dispatched 14:55,En Route 15:00,On Scene 15:01,At Patient 15:02,ALS Assessment,Response: UnchangedSucceeded, 15:08,Aspirin - 324 Milligrams (mg) - Oral,Response: Unchanged 15:08,BP: 178/103 M,PULSE: 100,RR: 20 R,SPO2: 95 Ox,ETCO2: ,B,PAIN: 6,GCS: 15, 15:09,Saline Lock 0cc 20 ga Site: Hand-Left,Response: UnchangedFailed, 15:09,12-Lead ECG,Response: UnchangedSucceeded, 15:09,BP: / M,PULSE: 89,RR: R,SPO2: 96 Ox,ETCO2: ,BG: ,PAIN: 6,GCS: , 15:10,Saline Lock 10cc 20 ga Site: Hand-Right,Response: UnchangedSucceeded, 15:13,Depart Scene 15:20,BP: / M,PULSE: 89,RR: R,SPO2: 96 Ox,ETCO2: ,BG: ,PAIN: ,GCS: , 15:25,BP: 167/95 M,PULSE: 87,RR: R,SPO2: 94 Ox,ETCO2: ,BG: ,PAIN: ,GCS: , 15:30,At Destination 15:47,Call Closed Disclaimer [address] [address] EMS Patient Care Report Name: CARYN WADSWORTH Room #: [facility] M.R.#: [id number] Admission: Attend Phys: Discharge: Date of : 54 Report #: [id number] v1.1 Copyright 2020 [employer] This EMS Care Summary contains data elements from the applicable legal record (which may be displayed differently). It is designed to provide pertinent information for the following purposes: continuity of care, clinical quality, and state data reporting. The complete legal record is available to ED staff and administrators of the receiving hospital in [employer] Patient Tracker. All data is provided "as is."
[~2019-10-03 15:34] MED LIST changes: +FUROSEMIDE 20 M20 MG PO; +GABAPENTIN 100100 MG PO; +NORCO 10-325 T1 EACH PO
[2019-10-03 15:52] LABS: ABSOLUTE NEUTROPHILS 6.1 thou/uL (1.4-8.2); BASOPHILS 0.8 % (0.0-2.0); EOSINOPHILS 1.4 % (0.0-3.0); HEMATOCRIT 42.2 % (37.0-47.0); HEMOGLOBIN 14.3 gm/dL (12.0-15.0); LYMPHOCYTES 24.2 % (24.0-44.0); MCH 28.5 pg (26.0-34.0); MCHC 33.8 g/dL (28.0-37.0); MCV 84.1 fL (80.0-100.0); MONOCYTES 5.9 % (1.0-8.0); PLATELET COUNT 313 thou/uL (150-400); POLYS 67.7 % (36.0-66.0); RBC 5.02 mil/uL (4.20-5.00)
[2019-10-03 16:04] LABS: ANION GAP 11 mmol/L (7-16); BUN 16 mg/dL (7-18); CALCIUM 9.6 mg/dL (8.5-10.1); CHLORIDE 102 mmol/L (98-107); CO2 26 mmol/L (21-32); CREATININE 1.1 mg/dL (0.6-1.0); GLUCOSE 121 mg/dL (74-106); POTASSIUM 3.4 mmol/L (3.5-5.1); SODIUM 139 mmol/L (136-145)
[2019-10-03 16:14] LABS: ALBUMIN 3.9 g/dL (3.4-5.0); SGOT 22 U/L (15-37); SGPT 27 U/L (30-65); TOTAL BILIRUBIN 0.5 mg/dL (0.2-1.0); TOTAL PROTEIN 7.6 g/dL (6.4-8.2); TROPONIN-I <0.06 ng/mL (<0.06)
[2019-10-03] MEDS ORDERED: NORCO 5-325 TA1 EAC1 PO (18:29)
[2019-10-03 18:44] VITALS: BP 171/95
--- NOTE | 2019-10-04 08:43 | EKG ---
[facility] [address] ELECTROCARDIOGRAM REPORT Name: CARYN WADSWORTH [id number] Admission: 10/03/19 Attend Phys: Discharge: 10/03/19 Date of : 54 Report #: [id number] THIS REPORT FOR: cc: KARINA - Marivel family physician/PCP KARINA - [facility] family physician/PCP Deon Kendrick MD [facility] THIS REPORT FOR: //name// [facility] ED Test Date: 2019-10-03 Test Time: 15:39:14 Pat Name: CARYN WADSWORTH Department: Room: Gender: F Food Mixer Assembler: esheets : 1950 Requested By: Shelby Rizvi Order Number: [id number] MD: Deon Kendrick Measurements Intervals [place] Rate: 78 P: 53 OR: 167 QRS: 40 QRSD: 97 T: 78 QT: 391 QTc: 446 Interpretive Statements Sinus rhythm Abnormal R-wave progression, late transition Baseline wander in lead(s) II,III,aVF Compared to ECG 05/17/2016 15:40:17 No significant change was found Electronically Signed On 10-04-2019 8:42:11 CDT by Deon Kendrick [email or web address] <ELECTRONICALLY SIGNED> By: Deon Kendrick MD, [facility] 10/04/19 0842 1539 1539 Deon Kendrick MD, [facility] /EPI
== END 2019-10-03 18:45 | disposition home or self-care (01) ==
LOC: ER 15:34
PROVIDERS: Physician Assistant
DX: M54.9 Dorsalgia, unspecified (principal); R07.89 Other chest pain; R06.02 Shortness of breath; R14.0 Abdominal distension (gaseous); R05 Cough; R60.0 Localized edema; I10 Essential (primary) hypertension; E78.5 Hyperlipidemia, unspecified; G43.909 Migraine, unspecified, not intractable, without status migrainosus; F32.9 Major depressive disorder, single episode, unspecified; F41.9 Anxiety disorder, unspecified; K21.9 Gastro-esophageal reflux disease without esophagitis; F17.210 Nicotine dependence, cigarettes, uncomplicated; Z87.442 Personal history of urinary calculi; Z79.899 Other long term (current) drug therapy; Z79.82 Long term (current) use of aspirin; Z88.8 Allergy status to other drugs, medicaments and biological substances

== ENCOUNTER 2019-12-09 13:10 | Emergency (ER) | payer OTHER ==
[~2019-12-09] VITALS: Ht 154.9 cm; Wt 77.1 kg
[2019-12-09] MEDS ORDERED: NORCO 5-325 TA1 EAC2 PO (14:43)
[2019-12-09 15:04] VITALS: BP 135/87
== END 2019-12-09 15:04 | disposition home or self-care (01) ==
LOC: ER 13:10
DX: M54.16 Radiculopathy, lumbar region (principal); M54.12 Radiculopathy, cervical region; G89.29 Other chronic pain; E66.01 Morbid (severe) obesity due to excess calories; G43.909 Migraine, unspecified, not intractable, without status migrainosus; K21.9 Gastro-esophageal reflux disease without esophagitis; M48.00 Spinal stenosis, site unspecified; F17.210 Nicotine dependence, cigarettes, uncomplicated; Z88.6 Allergy status to analgesic agent; Z79.899 Other long term (current) drug therapy

== ENCOUNTER 2020-03-01 14:43 | Emergency (ER) | payer OTHER ==
[~2020-03-01] VITALS: Ht 154.9 cm; Wt 88.5 kg
[~2020-03-01 14:43] MED LIST changes: +NORCO 5-325 TA1 EAC2 PO
[2020-03-01] MEDS ORDERED: LASIX 40 MG TAB40 MG PO (18:18)
[2020-03-01] MEDS ORDERED: POTASSIUM20 PO (18:18)
[2020-03-01 18:50] VITALS: BP 164/91
[2020-03-01] MEDS ORDERED: ULTRAM 50MG TAB50 MG PO (19:13)
== END 2020-03-01 18:50 | disposition home or self-care (01) ==
LOC: ER 14:43
DX: R60.0 Localized edema (principal); K59.00 Constipation, unspecified; I10 Essential (primary) hypertension; G43.909 Migraine, unspecified, not intractable, without status migrainosus; K21.9 Gastro-esophageal reflux disease without esophagitis; F32.9 Major depressive disorder, single episode, unspecified; F41.9 Anxiety disorder, unspecified; F17.210 Nicotine dependence, cigarettes, uncomplicated; Z87.442 Personal history of urinary calculi; Z79.899 Other long term (current) drug therapy; Z88.8 Allergy status to other drugs, medicaments and biological substances

== ENCOUNTER 2020-04-25 11:10 | Emergency (ER) | payer OTHER ==
[~2020-04-25] VITALS: Ht 154.9 cm; Wt 90.7 kg
[~2020-04-25 11:10] MED LIST changes: +LASIX 40 MG TAB40 MG PO; +POTASSIUM20 PO
[2020-04-25 14:25] VITALS: BP 209/113
== END 2020-04-25 14:25 | disposition home or self-care (01) ==
LOC: ER 11:10
DX: M25.512 Pain in left shoulder (principal); G43.909 Migraine, unspecified, not intractable, without status migrainosus; I10 Essential (primary) hypertension; F39 Unspecified mood [affective] disorder; F41.9 Anxiety disorder, unspecified; K21.9 Gastro-esophageal reflux disease without esophagitis; F17.210 Nicotine dependence, cigarettes, uncomplicated; Z87.442 Personal history of urinary calculi; Z79.899 Other long term (current) drug therapy; Z79.82 Long term (current) use of aspirin; Z88.8 Allergy status to other drugs, medicaments and biological substances; X50.1XXA Overexertion from prolonged static or awkward postures, initial encounter; Y93.84 Activity, sleeping; Y92.098 Other place in other non-institutional residence as the place of occurrence of the external cause; Y99.8 Other external cause status

== ENCOUNTER 2020-10-24 13:39 | Emergency (ER) | payer OTHER ==
[~2020-10-24] VITALS: Ht 154.9 cm; Wt 81.7 kg
[2020-10-24 14:15] LABS: ABSOLUTE NEUTROPHILS 4.2 thou/uL (1.4-8.2); BASOPHILS 1.9 % (0.0-2.0); EOSINOPHILS 2.8 % (0.0-3.0); HEMATOCRIT 41.7 % (37.0-47.0); HEMOGLOBIN 14.1 gm/dL (12.0-15.0); LYMPHOCYTES 31.8 % (24.0-44.0); MCH 29.7 pg (26.0-34.0); MCHC 33.9 g/dL (28.0-37.0); MCV 87.6 fL (80.0-100.0); MONOCYTES 5.5 % (1.0-8.0); PLATELET COUNT 326 thou/uL (150-400); RBC 4.76 mil/uL (4.20-5.00); RDW 14.2 % (10.5-14.5); WBC 7.3 thou/uL (4.0-11.0)
[2020-10-24 14:27] LABS: CREATININE 0.8 mg/dL (0.6-1.0); POTASSIUM 3.8 mmol/L (3.5-5.1)
[2020-10-24 16:43] LABS: URINE BILIRUBIN NEGATIVE (Negative); URINE BLOOD NEGATIVE (Negative); URINE CLARITY CLEAR; URINE COLOR YELLOW; URINE GLUCOSE-RANDOM* NEGATIVE (Negative); URINE KETONES NEGATIVE (Negative); URINE LEUKOCYTES-REFLEX TRACE (Negative); URINE NITRITE-REFLEX NEGATIVE (Negative); URINE PROTEIN (DIPSTICK) NEGATIVE (Negative); URINE UROBILINOGEN 0.2 E.U./dl (0.2-1.0)
[2020-10-24 17:12] VITALS: BP 151/78
[2020-10-24] MEDS ORDERED: ULTRAM 50MG TAB50 MG PO (17:13)
== END 2020-10-24 17:12 | disposition home or self-care (01) ==
LOC: ER 13:39
PROVIDERS: Emergency Medicine
DX: R60.0 Localized edema (principal); G43.909 Migraine, unspecified, not intractable, without status migrainosus; I10 Essential (primary) hypertension; K21.9 Gastro-esophageal reflux disease without esophagitis; E11.9 Type 2 diabetes mellitus without complications; F32.9 Major depressive disorder, single episode, unspecified; F41.9 Anxiety disorder, unspecified; F17.210 Nicotine dependence, cigarettes, uncomplicated; Z87.442 Personal history of urinary calculi; Z79.899 Other long term (current) drug therapy; Z79.82 Long term (current) use of aspirin; Z88.6 Allergy status to analgesic agent; Z88.8 Allergy status to other drugs, medicaments and biological substances

== ENCOUNTER 2020-11-13 20:13 | Emergency (ER) | payer OTHER ==
[~2020-11-13] VITALS: Ht 162.6 cm; Wt 68.0 kg
[2020-11-13] MEDS ORDERED: PREDNISONE50 MG PO (23:13)
[2020-11-13 23:40] VITALS: BP 153/98
== END 2020-11-13 23:41 | disposition home or self-care (01) ==
LOC: ER 20:13
DX: M25.512 Pain in left shoulder (principal); G43.909 Migraine, unspecified, not intractable, without status migrainosus; I10 Essential (primary) hypertension; M54.30 Sciatica, unspecified side; F32.9 Major depressive disorder, single episode, unspecified; K21.9 Gastro-esophageal reflux disease without esophagitis; E11.9 Type 2 diabetes mellitus without complications; F17.210 Nicotine dependence, cigarettes, uncomplicated; Z79.82 Long term (current) use of aspirin; Z91.09 Other allergy status, other than to drugs and biological substances